=== PATIENT | male | born 1980 | race Caucasian/White ===

== ENCOUNTER → 2021-01-17 09:26 | Outpatient (BNVA) | payer MEDICAID, SELFPAY | PROVIDERS: PCP Internal Medicine; Referring Provider Internal Medicine; Visit Provider Physician Assistant | DX: Z80.0 Family history of malignant neoplasm of digestive organs (principal) | CPT/HCPCS: 99212 ==

== ENCOUNTER 2021-03-13 09:51 | Day surgery (SDC) | payer MEDICAID, SELFPAY ==
[2021-03-06 11:29] VITALS: BMI 46.8
--- NOTE | 2021-03-12 13:38 | HO.ANESPROP2 ---
Documented by User: Karen Fang NP 03/12/21 13:39 HPI - Anesthesia Eval Consult details Narrative: 40yo M for Colonoscopy PMFSH Active Problems Active Problems: All Active Problems (Updated 03/06/21 @ 11:23 by Ani Escobar, MILA) Family history of colon cancer (Acute) Family history of malignant neoplasm of colon in relative diagnosed when younger than 50 years of age (Acute) Past Medical History Medical History COVID-19 vaccine series completed Sleep apnea Family History Family History Sister Colon cancer, Onset Age: 35 Surgical History Surgical History Surgical history unknown Social History Social History Household Members: Family Alcohol intake: never Patient Tobacco Use Status: Former Tobacco user Tobacco use type: Cigarette Advance Directives Information Provided: Yes (informational brochure mailed) Advance Directives on File: No Current occupational status: unemployed Meds Allergies Allergy/AdvReac Type Severity Reaction Status Date / Time No Known Allergies Allergy Verified 01/17/21 09:31 Home Medications Medication Instructions Recorded Confirmed Last Taken Type famotidine 20 mg tablet 20 mg PO DAILY 01/17/21 03/06/21 Unknown History sertraline 100 mg tablet 100 mg PO DAILY 01/17/21 03/06/21 Unknown History Exam Exam Date and Time: March 12, 2021 1338 Height,Weight and Vital Signs: Height 6 ft 1 in Weight 161.025 kg Assessment and Plan Assessment Anesthesia Assessment: Chart Reviewed Documented by User: Vickie Deng MD 03/13/21 11:18 PMFSH Past Medical History Medical History COVID-19 vaccine series completed Sleep apnea Functional capacity: independent ambulation Family History Family History Sister Colon cancer, Onset Age: 35 Family history of problems with anesthesia: No Surgical History Surgical History Surgical history unknown History of Problems with Anesthesia: No Social History Social History Household Members: Family Alcohol intake: never Patient Tobacco Use Status: Former Tobacco user Tobacco use type: Cigarette Advance Directives Information Provided: Yes (informational brochure mailed) Advance Directives on File: No Current occupational status: unemployed Meds Allergies Allergy/AdvReac Type Severity Reaction Status Date / Time No Known Allergies Allergy Verified 01/17/21 09:31 Home Medications Medication Instructions Recorded Confirmed Last Taken Type famotidine 20 mg tablet 20 mg PO DAILY 01/17/21 03/06/21 Unknown History sertraline 100 mg tablet 100 mg PO DAILY 01/17/21 03/06/21 Unknown History Exam Airway Mallampati Class: III TM Dist: >3cm Neck ROM: Full Heart: RRR Lungs: CTA Assessment and Plan Final Anesthetic Review Family History of Problems with Anesthesia: No History of Problems with Anesthesia: No Patient Risk: Intermediate Procedure Risk: Low Anesthetic Plan Anesthetic Plan: MAC: Disposition: Standard PACU
--- NOTE | 2021-03-13 10:21 | PC.NURSE ---
PLAN OF CRE FOR THE PROCEDURE, POST PROCEDURE AND PRE-PROCEDURE. AND THE NEED FOR A FLEET ENEMA.
--- NOTE | 2021-03-13 10:29 | PC.NURSE ---
PATIENT WENT TO THE BATHROOM AND OUTPUT WAS YELLOW/CLEAR/SEDIMENT IN THE TOILET.
[2021-03-13 10:31] VITALS: BP 107/72; PULSE 84; RESP 16; TEMP 36.7; O2SAT 97
--- NOTE | 2021-03-13 10:54 | MHC.SHP ---
Pre-Procedural Eval Section A Date of Service: 03/13/21 Section B Chief Complaint: Family Hx of colon cancer Details of Present Illness: sister with CRC Relevant Family History (Specify if Yes): Yes Relevant Social History: None Present Medications: see Short Stay Collaborative assessment Medical History: Significant History (Sleep apnea) History of Previous Operations: No relevant previous surgery Allergies: Allergies Allergy/AdvReac Type Severity Reaction Status Date / Time No Known Allergies Allergy Verified 01/17/21 09:31 Review of Systems Sugical H&P ROS: Negative: Constitution, Cardiovascular, Respiratory, Neurological, Psychiatric, Hem-Onc, Allergic/Immunologic, Gastrointestinal, Genitourinary, Musculoskeletal, Integumentary, Endocrine and Eyes/Ears/Nose/Throat Exam Surgical H&P Exam: Normal: HEENT, Normal: Heart, Normal: Lungs, Normal: Extremities, Normal: Abdomen, Normal: Skin and Normal: Neurological Plan Diagnosis/Plan: Unchanged I have reviewed the history and physical and performed a pertinent physical examination on my patient. No changes have occurred unless specified.
[2021-03-13] MEDS: Lactated Ringers 1,000 ML 100 ML IVCONT (11:07)
--- NOTE | 2021-03-13 11:46 | P.OP_ITS ---
Operative Note Operative Note Date of Service: 03/13/21 Narrative: Operative Information Procedure Description: Colonoscopy COLONOSCOPY Instrument: Olympus variable stiffness adult scope 190L Colonoscopy Monitoring: Vital signs and clinical assessment, continuous EKG monitoring, Pulse oximetry, Carbon Dioxide monitoring and blood pressure monitoring were done throughout the procedure. Colon withdrawal time: n/a-procedure aborted Procedure: The patient was placed in the left lateral decubitis position and pre-procedure medications were administered. After a digital rectal examination of the ano-rectum, the video colonoscope was inserted into the rectum and advanced through the colon to the cecum/TI. The colonoscope was slowly withdrawn in a retrograde panoramic fashion and the colon mucosa was carefully examined but at the proximal descending colon he desaturated and became v hypoxic so the procedure was aborted as he required bagging and ventilation Findings and interventions are described below. Procedure Difficulty: easy Findings: Terminal Ileum-normal Cecum:normal Ascending Colon: normal Transverse Colon -normal Descending Colon: 8 mm sessile polyp removed with cold snare Sigmoid Colon: not adequately seen Rectum: not fully seen on withdrawal Anorectum - normal Colon preparation: [place] Bowel Preparation Scale Right colon; 2 Transverse colon: 2 Left colon; 1 (0 = Unprepared colon segment with mucosa not seen due to solid stool that cannot be cleared. 1 = Portion of mucosa of the colon segment seen, but other areas of the colon segment not well seen due to staining, residual stool and/or opaque liquid. 2 = Minor amount of residual staining, small fragments of stool and/or opaque liquid, but mucosa of colon segment seen well. 3 = Entire mucosa of colon segment seen well with no residual staining, small fragments of stool or opaque liquid) Impression and Post Procedure Diagnosis: polyp aborted procedure Plan: High fiber diet leaflet Avoid straining at stool, epsom salts and sitz bath, anusol supps or cream Repeat Colonoscopy 2-3 months, will need to be scheduled in the OR, and may need to be intubated next time Above findings were reviewed with the patient and relevant handouts were provided if indicated.
--- NOTE | 2021-03-13 11:46 | PM.OP ---
Brief Operative Note Date of Service: 03/13/21 Pre-op diagnosis: FH of CRC Post-op diagnosis: same Procedure: see op note--procedure was aborted due to desaturation and hypoxia, right colon and transverse, proximal descending areas seen Surgeon: Lisa London MD Anesthesia: MAC Was an Waste Specialist used for this Procedure?: No Estimated blood loss (mL): 0 Condition: stable Disposition: PACU
[2021-03-13 12:25] VITALS: BP 113/78; PULSE 78; RESP 20; TEMP 36.2; O2SAT 100
[2021-03-13 12:30] VITALS: BP 130/81; PULSE 83; RESP 18; O2SAT 98
[2021-03-13 12:35] VITALS: BP 125/72; PULSE 92; RESP 18; O2SAT 95
[2021-03-13 12:40] VITALS: BP 133/82; PULSE 84; RESP 18; O2SAT 95
[2021-03-13 12:45] VITALS: BP 126/82; PULSE 86; RESP 18; TEMP 36.1; O2SAT 95
== END 2021-03-13 13:15 | disposition home or self-care (01) ==
PROVIDERS: PCP Internal Medicine; Visit Provider Internal Medicine Gastroenterology
PROC: 0DJD8ZZ Inspection of Lower Intestinal Tract, Via Natural or Artificial Opening Endoscopic (ICD-10-PCS; CPT 45378; principal; 2021-03-13 11:20)
DX: Z12.11 Encounter for screening for malignant neoplasm of colon (principal); Z80.0 Family history of malignant neoplasm of digestive organs; D12.4 Benign neoplasm of descending colon; R09.02 Hypoxemia; G47.33 Obstructive sleep apnea (adult) (pediatric); Z87.891 Personal history of nicotine dependence
CPT/HCPCS: 45385; 88305

== ENCOUNTER → 2021-06-17 07:23 | Outpatient (BNVA) | payer MEDICAID, SELFPAY | PROVIDERS: PCP Internal Medicine; Visit Provider Physician Assistant ==

== ENCOUNTER → 2021-08-20 10:28 | Outpatient (REF) | payer MEDICAID, SELFPAY ==
--- NOTE | 2021-08-20 10:39 | ECG_ITS ---
Test Reason : PREPROC EXAM Blood Pressure : / mmHG Vent. Rate : 065 BPM Atrial Rate : 065 BPM P-R Int : 144 ms QRS Dur : 086 ms QT Int : 376 ms P-R-T Axes : 020 036 029 degrees QTc Int : 391 ms Normal sinus rhythm Normal ECG No previous ECGs available Referred By: Emili Loera Electronically Signed By:HUGH FELIPE MD
== END ==
LOC: HO.CARD 10:28
PROVIDERS: Absent Provider Internal Medicine; PCP Internal Medicine; Visit Provider Nurse Practitioner Primary Care
DX: Z01.818 Encounter for other preprocedural examination (principal)
CPT/HCPCS: 93005

== ENCOUNTER 2021-08-21 11:52 | Day surgery (SDC) | payer MEDICAID, SELFPAY ==
[2021-08-14 11:53] VITALS: BP 118/64; PULSE 65; RESP 20; O2SAT 98; BMI 46.1
--- NOTE | 2021-08-14 12:03 | HO.ANESPROP2 ---
Documented by User: Karen Fang NP 08/16/21 13:53 HPI - Anesthesia Eval Consult details Narrative: 41yo M for Colonoscopy 03/2021 Colonoscopy aborted d/t pt obstructed, vomited small amount saliva, laryngospasm, SpO2 down to 60s . Breathing spontaneously prior to intubation Consider planned GA. (BMI=46, ARNIE) Stressed importance of CPAP use with all sleep. PMFSH Active Problems Active Problems: All Active Problems (Updated 08/14/21 @ 11:50 by Ani Escobar RN) Family history of colon cancer (Acute) Family history of malignant neoplasm of colon in relative diagnosed when younger than 50 years of age (Acute) Poor historian (Acute) Personal history of colonic polyps (Acute) Sleep apnea (Acute) Past Medical History Medical History COVID-19 vaccine series completed Depression GERD (gastroesophageal reflux disease) Sleep apnea Family History Family History Sister Colon cancer, Onset Age: 35 Family history of problems with anesthesia: No Surgical History Surgical History H/O colonoscopy Hx of circumcision History of Problems with Anesthesia: No Social History Social History Household Members: Family Are you a primary respiratory care practitioner to a significant other at home: No Do you presently have visiting nurse or other home services: No Alcohol intake: never Patient Tobacco Use Status: Former Tobacco user Quit Date: age 32 Tobacco use type: Cigarette Years Smoked: 15 Use of substances other than those prescribed or required for medical reasons: No Have you been hit, kicked, punched, or otherwise hurt by someone within the past year? If so, by whom?: No Are you DNR?: No Advance Directives: No Advance Directives Information Provided: Yes (brochure given) Advance Directives on File: No Recently lost weight without trying: No Eating poorly because of decreased appetite: No Nutrition Risks: No Nutritional Risk Poor oral hygiene: No Current occupational status: unemployed Narrative Narrative: No recent illness No CP/SOB with activity. Meds Allergies Allergy/AdvReac Type Severity Reaction Status Date / Time No Known Allergies Allergy Verified 06/17/21 07:25 Home Medications Medication Instructions Recorded Confirmed Last Taken Type famotidine 20 mg tablet 20 mg PO DAILY 01/17/21 08/13/21 Unknown History sertraline 100 mg tablet 100 mg PO DAILY 01/17/21 08/13/21 Unknown History Exam Exam Date and Time: August 14, 2021 1203 Height,Weight and Vital Signs: Height 6 ft 1 in Weight 158.8 kg Last Vital Signs Pulse 65 08/14/21 11:53 Resp 20 08/14/21 11:53 BP 118/64 08/14/21 11:53 Pulse Ox 98 08/14/21 11:53 Assessment and Plan Final Anesthetic Review Family History of Problems with Anesthesia: No History of Problems with Anesthesia: No Documented by User: Kathy Osborne MD 08/21/21 14:21 [facility] Past Medical History Medical History COVID-19 vaccine series completed Depression GERD (gastroesophageal reflux disease) Sleep apnea Family History Family History Sister Colon cancer, Onset Age: 35 Surgical History Surgical History H/O colonoscopy Hx of circumcision Social History Social History Household Members: Family Are you a primary respiratory care practitioner to a significant other at home: No Do you presently have visiting nurse or other home services: No Alcohol intake: never Patient Tobacco Use Status: Former Tobacco user Quit Date: age 32 Tobacco use type: Cigarette Years Smoked: 15 Use of substances other than those prescribed or required for medical reasons: No Have you been hit, kicked, punched, or otherwise hurt by someone within the past year? If so, by whom?: No Are you DNR?: No Advance Directives: No Advance Directives Information Provided: Yes (brochure given) Advance Directives on File: No Recently lost weight without trying: No Eating poorly because of decreased appetite: No Nutrition Risks: No Nutritional Risk Poor oral hygiene: No Current occupational status: unemployed Meds Allergies Allergy/AdvReac Type Severity Reaction Status Date / Time No Known Allergies Allergy Verified 06/17/21 07:25 Home Medications Medication Instructions Recorded Confirmed Last Taken Type famotidine 20 mg tablet 20 mg PO DAILY 01/17/21 08/13/21 Unknown History sertraline 100 mg tablet 100 mg PO DAILY 01/17/21 08/13/21 Unknown History Exam Airway Mallampati Class: III TM Dist: >3cm Neck ROM: Full Loose/Missing/Broken Teeth: No Heart: RRR Lungs: CTA Assessment and Plan Assessment Anesthesia Assessment: Anesthesia Plan Discussed Final Anesthetic Review NPO: Yes ASA Class: III Final Preanesthetic Review: Meds/Allgs Chart Reviewed, Consent Obtained/Reviewed and Anes Risks/Benef Reviewed Patient Risk: Intermediate Procedure Risk: Low Anesthetic Plan Anesthetic Plan: MAC: Disposition: Standard PACU
[2021-08-21 12:32] VITALS: BP 138/84; PULSE 77; RESP 18; TEMP 36.4; O2SAT 97
[2021-08-21] MEDS: Lactated Ringers 1,000 ML 100 ML IVCONT (12:57)
--- NOTE | 2021-08-21 13:38 | P.HPSUR_ITS ---
Pre-Procedural Eval Section A Date of Service: 08/21/21 Section B Chief Complaint: Fh of colon cancer Relevant Family History (Specify if Yes): Yes Relevant Social History: None Present Medications: see Short Stay Collaborative assessment Medical History: Significant History (Depression GERD (gastroesophageal reflux disease) Sleep apnea) History of Previous Operations: Relevant previous surgery/procedure and date(s) (circumcision ) Allergies: Allergies Allergy/AdvReac Type Severity Reaction Status Date / Time No Known Allergies Allergy Verified 06/17/21 07:25 Review of Systems Sugical H&P ROS: Negative: Constitution, Cardiovascular, Respiratory, Neuro logical, Psychiatric, Hem-Onc, Allergic/Immunologic, Gastrointestinal, Genitourinary, Musculoskeletal, Integumentary, Endocrine and Eyes/Ears/Nose/Throat Exam Surgical H&P Exam: Normal: HEENT, Normal: Heart, Normal: Lungs, Normal: Extremities, Normal: Abdomen, Normal: Skin and Normal: Neurological Plan Diagnosis/Plan: Unchanged I have reviewed the history and physical and performed a pertinent physical examination on my patient. No changes have occurred unless specified.
--- NOTE | 2021-08-21 13:42 | P.BOP_ITS ---
Brief Operative Note Date of Service: 08/21/21 Pre-op diagnosis: FH of CRC-colon screening-high risk Post-op diagnosis: same Procedure: see op note Surgeon: Lisa London MD Anesthesia: MAC Was an Track Greaser used for this Procedure?: No Estimated blood loss (mL): 0 Condition: stable Disposition: PACU
--- NOTE | 2021-08-21 13:42 | W.PM.OPN ---
Operative Note Operative Note Date of Service: 08/21/21 Narrative: Operative Information Procedure Description: Colonoscopy Indication: FH of CRC-colon screening-high risk Anesthesia: MAC COLONOSCOPY Instrument: Olympus variable stiffness ADULT scope 190L Colonoscopy Monitoring: Vital signs and clinical assessment, continuous EKG monitoring, Pulse oximetry, Carbon Dioxide monitoring and blood pressure monitoring were done throughout the procedure. Colon withdrawal time was 10 minutes. Procedure: The patient was placed in the left lateral decubitis position and pre-procedure medications were administered. After a digital rectal examination of the ano-rectum, the video colonoscope was inserted into the rectum and advanced through the colon to the cecum/TI. The colonoscope was slowly withdrawn in a retrograde panoramic fashion and the colon mucosa was carefully examined including a retroflexed view of the rectum. Findings and interventions are described below. Procedure Difficulty: easy Findings: Terminal Ileum- mild erythema Cecum:normal Ascending Colon: normal Transverse Colon -normal Descending Colon:normal Sigmoid Colon: normal Rectum: Retroflexion with small internal hemorrhoids, grade I Anorectum - normal Colon preparation: [place] Bowel Preparation Scale Right colon; 3 Transverse colon: 3 Left colon; 3 (0 = Unprepared colon segment with mucosa not seen due to solid stool that cannot be cleared. 1 = Portion of mucosa of the colon segment seen, but other areas of the colon segment not well seen due to staining, residual stool and/or opaque liquid. 2 = Minor amount of residual staining, small fragments of stool and/or opaque liquid, but mucosa of colon segment seen well. 3 = Entire mucosa of colon segment seen well with no residual staining, small fragments of stool or opaque liquid) Impression and Post Procedure Diagnosis: internal hemorrhoids Plan: High fiber diet leaflet Avoid straining at stool, epsom salts and sitz bath, anusol supps or cream Repeat Colonoscopy in 5 years due to FH of CRC or earlier if clinically indicated Above findings were reviewed with the patient and relevant handouts were provided if indicated.
[2021-08-21 14:25] VITALS: BP 109/70; PULSE 76; RESP 16; TEMP 36.4; O2SAT 96
[2021-08-21 14:30] VITALS: BP 124/77; PULSE 71; RESP 16; O2SAT 97
[2021-08-21 14:35] VITALS: BP 112/64; PULSE 74; RESP 16; O2SAT 98
[2021-08-21 14:40] VITALS: BP 110/70; PULSE 72; RESP 16; O2SAT 99
== END 2021-08-21 15:13 | disposition home or self-care (01) ==
PROVIDERS: PCP Internal Medicine; Visit Provider Internal Medicine Gastroenterology
PROC: 0DJD8ZZ Inspection of Lower Intestinal Tract, Via Natural or Artificial Opening Endoscopic (ICD-10-PCS; CPT 45378; principal; 2021-08-21 13:20)
DX: Z12.11 Encounter for screening for malignant neoplasm of colon (principal); Z80.0 Family history of malignant neoplasm of digestive organs; Z86.010 Personal history of colon polyps; K64.0 First degree hemorrhoids; K21.9 Gastro-esophageal reflux disease without esophagitis; G47.33 Obstructive sleep apnea (adult) (pediatric); Z99.89 Dependence on other enabling machines and devices; Z79.899 Other long term (current) drug therapy; Z87.891 Personal history of nicotine dependence
CPT/HCPCS: 45378; J2405; J2765

== ENCOUNTER → 2021-10-10 08:54 | Outpatient (BNVA) | payer MEDICAID, SELFPAY | PROVIDERS: PCP Internal Medicine; Visit Provider Physician Assistant | DX: K64.9 Unspecified hemorrhoids (principal); Z86.010 Personal history of colon polyps; Z80.0 Family history of malignant neoplasm of digestive organs | CPT/HCPCS: 99212 ==

== ENCOUNTER 2023-09-14 13:28 | Emergency (ER) | payer MEDICAID, SELFPAY ==
--- NOTE | ~2023-09-14 | XR_ITS ---
EXAMINATION: XR HAND, LEFT CLINICAL INFORMATION: Thumb penetrating injury. COMPARISON: None available. TECHNIQUE: PA, lateral, and oblique views of the left hand. XR/XR hand LT min 3V FINDINGS / IMPRESSION: There is a 1.1 cm long radiopaque foreign object overlying the distal phalanx of the first digit. The adjacent bone appears intact. There is a small defect within the skin adjacent to this retained foreign object.
[2023-09-14 14:00] VITALS: BP 134/84; PULSE 86; RESP 18; TEMP 36.6; O2SAT 98; BMI 49.3
--- NOTE | 2023-09-14 14:01 | ED_ITS ---
HPI - Extremity Injury (Upper) General Chief Complaint: Wound/Laceration Stated Complaint: FO in thumb Time Seen by Provider: 09/14/23 15:04 Source: patient Mode of arrival: ambulatory Limitations: no limitations History of Present Illness HPI narrative: 43-year-old male presents to ED for a through and through laceration of left thumb. Patient was playing with a fiberglass that went through his finger. Patient pulled it out still have rest of fiberglass in thumb. Patient has complete range of motion of finger. Patient has sensation. Related Data Home Medications ?Medication ?Instructions ?Recorded ?Confirmed famotidine 20 mg tablet 20 mg PO DAILY 01/17/21 10/10/21 sertraline 100 mg tablet 100 mg PO DAILY 01/17/21 10/10/21 Previous Rx's ?Medication ?Instructions ?Recorded methylcellulose (laxative) 500 mg 500 mg PO BID #60 tabs 10/10/21 tablet (Citrucel) cephalexin 250 mg capsule 250 mg PO Q6H 7 days #28 caps 09/14/23 naproxen 500 mg tablet 500 mg PO BID PRN pain 7 days #14 09/14/23 tabs Allergies Allergy/AdvReac Type Severity Reaction Status Date / Time coconut AdvReac Diarrhea Verified 09/14/23 14:03 Review of Systems 2 Review of Systems: Left thumb through and through laceration Yes all other systems are reviewed and are negative [facility] Past Medical History Medical History COVID-19 vaccine series completed Depression GERD (gastroesophageal reflux disease) Sleep apnea Surgical History H/O colonoscopy Hx of circumcision Family History Family History Sister Colon cancer, Onset Age: 35 Social History Social History Household Members: Family Are you a primary primary health care nurse to a significant other at home: No Do you presently have visiting nurse or other home services: No Alcohol intake: never Patient Tobacco Use Status: Former Tobacco user Quit Date: age 32 Tobacco use type: Cigarette Years Smoked: 15 Advance Directives: No Advance Directives Information Provided: No Current occupational status: unemployed Physical Exam 2 Vital Signs: Vital Signs: Last Vital Signs Temp 0 F L 09/14/23 17:43 Pulse 0 L 09/14/23 17:43 Resp 16 09/14/23 17:43 BP 00/00 L 09/14/23 17:43 Pulse Ox 100 09/14/23 17:22 O2 Del Method Room Air 09/14/23 17:22 BMI result Body Mass Index 49.3 Const: General: cooperative, healthy appearing, comfortable, no acute distress, well developed, alert, awake and Physically active O rientation/consciousness: oriented to person, oriented to place, oriented to time and patient oriented x3 HEENT: Head: Yes normal to inspection, Yes No palpable skull fracture present, Yes normocephalic, Yes atraumatic and No abrasion Eyes: General: appearance normal, both eyes and all related structures Neck: Neck: Yes normal visual inspection, Yes full ROM, Yes no lymphadenopathy, Yes no meningeal signs, Yes trachea midline, Yes supple, No anterior neck swelling and No tender Chest: Chest palpation & inspection: normal inspection of the chest and normal palpation of entire chest wall Resp: Effort & Inspection: normal respiratory effort and able to speak in complete sentences Auscultation: clear to auscultation bilaterally Cardio: Jugular venous distension: no JVD Heart sounds: S1 normal heart sound present and S2 normal heart sound present GI: Inspection: Yes normal to inspection Palpation (GI): not firm, nontender, no guarding and not rigid : General: No CVA tenderness and Yes no CVA tenderness Back/Spine/Pelvis: Back: no CVA tenderness, No CVA tenderness and No back tenderness Skin: General skin exam: no rashes or lesions noted, elasticity normal and turgor normal Neuro: General: oriented to person, oriented to place, oriented to time, patient oriented x3, gait normal, tone normal, moves all extremities, Normal light touch and pain sensation, no meningeal signs, no focal motor deficits, CN's II-XI intact bilaterally and normal sensation to monofilament Extrem: General: Yes normal to inspection and Yes full ROM Hand/finger images: 1. positive for foreign body. Patient states remaining piece of fibroadipose. Patient has complete range of motion of finger. Negative for signs of tendon/nerve injury. Capillary refills intact. Patient has sensation. Rest of extremity normal. Motor/neuro /vascular exam intact. Psych: Appearance: grossly normal, well kempt and not disheveled Course Course Course Narrative: This is a Rapid Medical Examination (RME) performed by Mariusz Amor PA-C in triage. Full HPI, ROS, assessment and treatment plan per primary provider in the Main ED. 43-year-old right-hand dominant male presents to the ER for evaluation of a penetrating injury to his left thumb sustained just prior to arrival. Patient was shooting arrows with his daughter when an arrow went through and through the left thumb, he pulled it out. Unable to flex the thumb since the injury. No active bleeding. In triage patient has visible entry and exit wound, appears contaminated and dirty. Limited range of motion and extremely tender. Plan: X-ray, Tdap Medications Administered Discontinued Medications Generic Name Dose Route Start Last Admin Trade Name Freq PRN Reason Stop Dose Admin Diphtheria/Tetanus/Acell Pertussis 0.5 ml 09/14/23 14:00 09/14/23 15:03 Diphth,Pertus(Acell),Tet Adult 0.5 Ml Syringe IM 09/14/23 14:01 0.5 ml .ONCE ONE Administration Ceftriaxone Sodium 1 gm/ 50 mls @ 100 mls/hr 09/14/23 15:53 09/14/23 16:52 Sodium Chloride IV 09/14/23 16:22 Infused ONCE ONE Infusion Lidocaine HCl 5 ml 09/14/23 16:07 09/14/23 16:15 Lidocaine Hcl 1 % Mpf 5 Ml Vial INFILTRATI 09/14/23 16:08 5 ml ONCE ONE Administration Lidocaine HCl 5 ml 09/14/23 16:07 09/14/23 16:15 Lidocaine Hcl 1 % Mpf 5 Ml Vial INFILTRATI 09/14/23 16:08 5 ml ONCE ONE Administration Medical Decision Making Medical Decision Making MDM Narrative: 43-year-old male presents to ED for left thumb laceration through and through caused by fiberglass arrow. Patient not in distress. Patient has complete range of motion of finger. Patient is sent for x-ray. Tdap ordered 5:19pm: X-ray shows foreign body. 1 mL used for digital block lidocaine 1%. Cleaned with sterile saline Betadine iodine. Initially 11 size blade was going to be used for incision but was able to pull out rest of fiberglass arrow from fingers slowly. No need for laceration repair very small openings no profuse bleeding. Wounds closed with Dermabond. Patient received IV Keflex. Patient explained worrisome signs informed to return to the ED for has them. Negative for signs of tendon nerve injury. negative for signs of vascular compromise Differential Diagnosis Differential Diagnoses: The differential diagnosis associated with the presentation includes ( foreign body, dislocation, fracture, laceration,) Independent Interpretation I performed an independent interpretation of an: Plain X-Ray Radiology Impression Discussion of test interpretation with radiology: I have reviewed the radiologist's reading. Independent Historian Clinical information obtained from an independent historian. History obtained from or confirmed by: Other ( patient) External Record Review External record reviewed: Other ( prior visits) Prescription Management I considered prescription management with: Antibiotic Discharge Plan Discharge Clinical Impression: Laceration of finger Patient Disposition: Home, Self-Care Instructions: Laceration (ED), Finger Laceration (ED), Skin Adhesive Care (ED) Additional Instructions: return to the ED immediately for any redness, pus discharge, foul odor, stiffness, bluish black discoloration, fever, chills, stiffness, red streaks, or any other concerning symptoms. Recommend follow-up with primary care provider. Leave wound dry and clean the 1st 48 hours. Prescriptions: New cephalexin 250 mg capsule 250 mg PO Q6H 7 Days Qty: 28 0RF naproxen 500 mg tablet 500 mg PO BID PRN (Reason: pain) 7 Days Qty: 14 0RF No Action sertraline 100 mg tablet 100 mg PO DAILY famotidine 20 mg tablet 20 mg PO DAILY Citrucel 500 mg tablet 500 mg PO BID Qty: 60 5RF Stand Alone Forms: Work/School Release Interventions: ED Discharge Assessment Last Done: 09/14/23 17:43 Discharge Date/Time: 09/14/23 17:44 Print Language: Telugu
[2023-09-14] MEDS: Diphth,Pertus(ACell),Tet Adult 0.5 ML SYRINGE IM (15:03)
[2023-09-14] MEDS: cefTRIAXone sodium 1 GM in 0.9 % Sodium Chloride 50 ML IV (16:15)
[2023-09-14] MEDS: Lidocaine HCl 1 % MPF 5 ML VIAL INFILTRATI ×2 (16:15)
[2023-09-14 17:22] VITALS: BP 125/76; PULSE 74; RESP 16; TEMP 36.8; O2SAT 100
[2023-09-14 17:43] VITALS: BP 00/00; PULSE 0; RESP 16; TEMP -17.7; TEMP 0
== END 2023-09-14 17:44 | disposition home or self-care (01) ==
PROVIDERS: Emergency Provider Student in an Organized Health Care Education/Training Program
DX: S61.012A Laceration without foreign body of left thumb without damage to nail, initial encounter (principal); M79.642 Pain in left hand; W26.9XXA Contact with unspecified sharp object(s), initial encounter; Y93.9 Activity, unspecified; Y92.9 Unspecified place or not applicable; Y99.8 Other external cause status; Z23 Encounter for immunization
CPT/HCPCS: 12001; 73130; 90471; 90715; 96365; 99284; J0696

== ENCOUNTER 2023-09-25 10:01 | Outpatient (REF) | payer MEDICAID, SELFPAY ==
[2023-09-25 11:44] LABS: Estimated Average Glucose 111 mg/dL; Hemoglobin A1c % 5.5 % (<6.0)
[2023-09-25 11:45] LABS: Alanine Aminotransferase 21 U/L (0-40); Alkaline Phosphatase 90 U/L (39-117); Anion Gap 10 (12-20); Aspartate Amino Transferase 12 U/L (5-37); Bilirubin Total 0.3 mg/dL (0.0-1.0); Blood Urea Nitrogen 14 mg/dL (9-16); Carbon Dioxide 28 mmol/L (22-29); Chloride 108 mmol/L (96-108); Cholesterol 196 mg/dL (<200); Estimated Glomerular Filt Rate > 60; Glucose Random 111 mg/dL (60-115); HDL Cholesterol 33 mg/dL (>40); LDL Cholesterol Calculated 126 mg/dL (<100); Potassium 3.7 mmol/L (3.3-5.1); Sodium 142 mmol/L (135-145); Total Protein 6.9 g/dL (6.5-8.0); Triglycerides 186 mg/dL (<150)
[2023-09-26 04:44] LABS: HIV AB/AG Nonreactive (Nonreactive); HIV Num 1 0.04 S/CO (0.00-0.99); ~HepC Num1 0.09 S/CO (0.00-0.79); ~Hepatitis C Antibody Nonreactive (Nonreactive)
[2023-09-26 06:05] LABS: CT PCR NOT DETECTED (Not Detect.); NG PCR NOT DETECTED (Not Detect.)
[2023-09-27 11:28] LABS: RPR Rapid Plasma Reagin NON-REACTIVE (NON-REACTIVE)
== END 2023-09-25 10:02 | disposition home or self-care (01) ==
LOC: HO.HHCL 10:01
PROVIDERS: Visit Provider Nurse Practitioner Family
DX: Z00.00 Encounter for general adult medical examination without abnormal findings (principal); E66.01 Morbid (severe) obesity due to excess calories; Z68.41 Body mass index [BMI] 40.0-44.9, adult
CPT/HCPCS: 0353U; 36415; 80053; 80061; 83036; 86592; 86803; 87389

== ENCOUNTER 2024-02-24 10:29 | Outpatient (REF) | payer MEDICAID, SELFPAY ==
[2024-02-24 11:20] LABS: MANUAL DIFF FLAG NO
[2024-02-24 11:36] LABS: Basophils Percent Auto 0.6 % (0-2); Eosinophils Absolute Auto 0.2 X10*3/uL (0.0-0.4); Eosinophils Percent Auto 3.8 % (0-4); Hematocrit 43.4 % (42.0-52.0); Hemoglobin 14.1 g/dl (14.0-18.0); Imm Gran Abs Auto 0.03 X10*3/uL (0.00-0.03); Imm Gran Pct Auto 0.6 % (0.0-0.4); Lymphocytes Absolute Auto 1.4 X10*3/uL (1.2-4.9); Lymphocytes Percent Auto 26.8 % (20-40); Mean Corpuscular HGB Conc 32.5 g/dl (31.0-36.0); Mean Corpuscular Hemoglobin 26.7 pg (27.0-33.0); Mean Platelet Volume 10.7 fL (9.4-12.4); Monocytes Absolute Auto 0.6 X10*3/uL (0.1-1.2); Monocytes Percent Auto 10.5 % (2-11); Neutrophils Absolute Auto 3.1 x10*3/uL (2.0-8.3); Neutrophils Percent Auto 57.7 % (45-73); Platelet Count 161 X10*3/uL (160-400); Red Blood Count 5.29 X10*6/uL (4.60-5.80); Red Cell Distribution Width 14.1 % (11.0-16.0); White Blood Count 5.3 X10*3/uL (4.8-10.8)
[2024-02-24 11:43] LABS: Estimated Average Glucose 105 mg/dL; Hemoglobin A1C 122.7018 umol/L; Hemoglobin A1c % 5.3 % (<6.0); Total Hemoglobin (HGBA1C) 3532.8796 umol/L
[2024-02-24 12:31] LABS: Alanine Aminotransferase 25 U/L (0-40); Albumin Level 3.8 g/dL (3.5-5.0); Alkaline Phosphatase 97 U/L (39-117); Anion Gap 12 (12-20); Aspartate Amino Transferase 26 U/L (5-37); Bilirubin Total 0.6 mg/dL (0.0-1.0); Blood Urea Nitrogen 14 mg/dL (9-16); Calcium 8.5 mg/dL (8.4-10.2); Carbon Dioxide 25 mmol/L (22-29); Chloride 110 mmol/L (96-108); Estimated Glomerular Filt Rate > 60; Glucose Random 103 mg/dL (60-115); Iron 64 mcg/dL (45-160); Percent Iron Saturation 25 % (15-50); Potassium 3.9 mmol/L (3.3-5.1); Sodium 143 mmol/L (135-145); Total Iron Binding Capacity 253 mcg/dL (228-428); Total Protein 6.6 g/dL (6.5-8.0); Unsaturated Iron Binding 189 ug/dL
[2024-02-24 12:43] LABS: TSH reflex Free T4 1.72 uIU/mL (0.32-4.0)
== END 2024-02-24 10:30 | disposition home or self-care (01) ==
LOC: HO.HHCL 10:29
PROVIDERS: Visit Provider Nurse Practitioner Family
DX: R53.83 Other fatigue (principal)
CPT/HCPCS: 36415; 80053; 83036; 83540; 84443; 85025